=== PATIENT | male | born 1960 | race Caucasian/White ===

== ENCOUNTER 2021-02-23 08:07 | Outpatient (CLI) | payer OTHER | END 2021-02-23 08:08 | disposition home or self-care (01) | LOC: CSHMRI 08:07 | PROVIDERS: ATTEND Family Medicine | DX: R20.0 Anesthesia of skin (principal); R29.898 Other symptoms and signs involving the musculoskeletal system | CPT/HCPCS: 70553 ==

== ENCOUNTER 2021-04-03 09:04 | Outpatient (CLI) | payer OTHER | END 2021-04-03 09:05 | disposition home or self-care (01) | LOC: CSHMRI 09:04 | PROVIDERS: ATTEND Nurse Practitioner Acute Care | DX: R20.0 Anesthesia of skin (principal); M47.812 Spondylosis without myelopathy or radiculopathy, cervical region | CPT/HCPCS: 70553; 72156 ==

== ENCOUNTER 2024-01-28 13:20 | Outpatient (CLI) | payer OTHER | END 2024-01-28 13:21 | disposition home or self-care (01) | LOC: CSHWCC 13:20 | PROVIDERS: ATTEND Nurse Practitioner Family | DX: L97.512 Non-pressure chronic ulcer of other part of right foot with fat layer exposed (principal) | CPT/HCPCS: 97597 ==

== ENCOUNTER 2024-01-30 11:07 | Outpatient (CLI) | payer OTHER | END 2024-01-30 11:08 | disposition home or self-care (01) | LOC: CSHWCC 11:07 | PROVIDERS: ATTEND Nurse Practitioner Family | DX: L97.512 Non-pressure chronic ulcer of other part of right foot with fat layer exposed (principal) | CPT/HCPCS: 99213; G0463 ==

== ENCOUNTER 2024-02-05 08:48 | Outpatient (CLI) | payer OTHER | END 2024-02-05 08:49 | disposition home or self-care (01) | LOC: CSHWCC 08:48 | PROVIDERS: ATTEND Nurse Practitioner Family | DX: L97.512 Non-pressure chronic ulcer of other part of right foot with fat layer exposed (principal) | CPT/HCPCS: 99212; G0463 ==

== ENCOUNTER 2024-02-18 09:23 | Outpatient (CLI) | payer OTHER | END 2024-02-18 09:24 | disposition home or self-care (01) | LOC: CSHWCC 09:23 | PROVIDERS: ATTEND Nurse Practitioner Family | DX: L97.512 Non-pressure chronic ulcer of other part of right foot with fat layer exposed (principal) | CPT/HCPCS: 99212; G0463 ==